=== PATIENT | female | born 1960 | race Caucasian/White ===

== ENCOUNTER 2018-01-11 08:26 | Inpatient (IN) | payer BC ==
[2018-01-11 11:00] LABS: BASO % 0.4 % (0.0-2.0); EOS % 0.3 % (0.0-4.0); HEMOGLOBIN 14.8 g/dL (12.0-16.0); LYMPH # 1.7 K/uL (1.0-4.3); LYMPH % 16.9 % (20.0-40.0); MEAN CELL VOLUME 99.4 fl (81.0-99.0); MEAN CORPUSCULAR HEMOGLOBIN 33.1 pg (27.0-31.0); MEAN CORPUSCULAR HGB CONC 33.3 g/dL (33.0-37.0); MEAN PLATELET VOLUME 11.2 fl (7.2-11.7); MONO # 0.7 K/uL (0.0-0.8); NEUT # 7.4 K/uL (1.8-7.0); NEUT % 75.4 % (50.0-75.0); NRBC % 0.1 % (0.0-0.0); RBC 4.46 Mil/uL (3.80-5.20); RED CELL DISTRIBUTION WIDTH 13.3 % (11.5-14.5); WHITE BLOOD COUNT 9.8 K/uL (4.8-10.8)
[2018-01-11 11:13] LABS: BLOOD UREA NITROGEN 33 mg/dl (7-17); CALCIUM 9.4 mg/dL (8.4-10.2); GFR AFRICAN-AMERICAN > 60; GFR NON-AFRICAN AMERICAN > 60; LIPASE 73 U/L (23-300)
[2018-01-11 11:24] LABS: B-TYPE NATRIURETIC PEPTIDE 15700 pg/ml (0-900)
--- NOTE | 2018-01-11 11:34 | RAD ---
HISTORY: SOB COMPARISON: 10/13/2014. FINDINGS: LUNGS: No active pulmonary disease. PLEURA: No significant pleural effusion identified, no pneumothorax apparent. CARDIOVASCULAR: No radiographic findings to suggest acute or significant cardiovascular disease. Position/ configuration of pacemaker device: Satisfactory. OSSEOUS STRUCTURES: No significant abnormalities. VISUALIZED UPPER ABDOMEN: Normal. OTHER FINDINGS: None. IMPRESSION: No active disease. No significant interval change compared to the prior examination(s).
--- NOTE | 2018-01-11 12:14 | CARD ---
APPROVED REPORT EKG Measurement Heart [id number] <Conclusion> Sinus tachycardia Possible Left atrial enlargement Left axis deviation Septal infarct, age undetermined ST & T wave abnormality, consider lateral ischemia Abnormal ECG
--- NOTE | 2018-01-11 12:29 | ED PDOC ---
HPI: Abdomen Time Seen by Provider: 01/11/18 09:03 Chief Complaint (Nursing): Pain, Chronic Chief Complaint (Provider): Pain, Chronic History Per: Patient History/Exam Limitations: no limitations Onset/Duration Of Symptoms: Days (x 7) Current Symptoms Are (Timing): Still Present Location Of Pain/Discomfort: Diffuse Associated Symptoms: denies: Chest Pain, Other (Bleeding, syncope) Additional Complaint(s): 57 years old female with history of diabetes, hypertension, anxiety, CHF, COPD and asthma presents to the ED complaining of diffused abdominal pain, leg pain associated with difficulty walking and generalized weakness onset for a week. Patient also reports chronic shortness of breath. Patient states she was seen by Dr. Mackenzie yesterday for complaints and was prescribed medicine but with no improvement. She reports she stopped all her medications a few days ago because "she did not feel well." Patient states she was not able to sleep well because of the pain. She denies any chest pain, syncope, bleeding. No further medical complaints. PCP: Subhash Mackenzie I Past Medical History Reviewed: Historical Data, Nursing Documentation, Vital Signs Vital Signs: Last Vital Signs Temp 97.5 F L 01/12/18 16:03 Pulse 96 H 01/12/18 16:03 Resp 18 01/12/18 16:03 BP 125/77 01/12/18 16:03 Pulse Ox 96 01/12/18 16:03 - Medical History PMH: Anxiety, Asthma, CHF, COPD, Diabetes, HTN, Kidney Stones Denies: HIV - Surgical History Surgical History: No Surg Hx - Family History Family History: States: Unknown Family Hx, Hypertension - Social History Current smoker - smoking cessation education provided: No Alcohol: None Drugs: Denies - Home Medications Home Medications: Ambulatory Orders Medication Instructions Recorded Aspirin [Ecotrin] 81 mg PO DAILY 01/11/18 Atorvastatin [Lipitor] 40 mg PO DAILY 01/11/18 Budesonide/Formoterol Fumarate 2 puff IH Q12 01/11/18 [Symbicort 160-4.5 Mcg Inhaler] Digoxin [Digitek] 125 mcg PO DAILY 01/11/18 Esomeprazole Magnesium [Nexium 20 mg PO DAILY 01/11/18 24Hr] Fluocinonide 0.05% Cream [Lidex 1 appl TOP Q8 01/11/18 0.05% Cream] Furosemide [Lasix] 40 mg PO DAILY 01/11/18 GlipiZIDE [Glucotrol] 10 mg PO DAILY 01/11/18 Ivabradine HCl [Corlanor] 5 mg PO Q12 01/11/18 Sacubitril/Valsartan [Entresto 49 1 tab PO Q12 01/11/18 mg-51 mg] Spironolactone [Aldactone] 12.5 mg PO DAILY 01/11/18 Sucralfate [Carafate Tab] 1 gm PO QID 01/11/18 - Allergies Allergies/Adverse Reactions: Allergies Allergy/AdvReac Type Severity Reaction Status Date / Time No Known Allergies Allergy Verified 07/09/14 13:47 Review of Systems ROS Statement: Except As Marked, All Systems Reviewed And Found Negative Constitutional: Positive for: Weakness (generalized ). Negative for: Other ( bleeding) Cardiovascular: Negative for: Chest Pain Respiratory: Positive for: Shortness of Breath (chronic) Gastrointestinal: Positive for: Abdominal Pain (Diffused) Musculoskeletal: Positive for: Leg Pain (Bilateral) Neurological: Negative for: Other (syncope) Physical Exam - Reviewed Nursing Documentation Reviewed: Yes Vital Signs Reviewed: Yes - Physical Exam Appears: Positive for: Non-toxic, No Acute Distress Head Exam: Positive for: ATRAUMATIC, NORMAL INSPECTION Skin: Positive for: Normal Color, Warm, Dry Eye Exam: Positive for: Normal appearance, EOMI, PERRL Neck: Positive for: Normal, Painless ROM, Supple Cardiovascular/Chest: Positive for: Regular Rate, Rhythm, Tachycardia. Negative for: Edema, Murmur Respiratory: Positive for: Normal Breath Sounds. Negative for: Respiratory Distress Gastrointestinal/Abdominal: Positive for: Normal Exam, Soft. Negative for: Tenderness, Distended Back: Positive for: Normal Inspection. Negative for: L CVA Tenderness, R CVA Tenderness, Vertebral Tenderness Extremity: Positive for: Normal ROM (lower extremities). Negative for: Tenderness (b/l legs), Deformity, Swelling (b/l legs) Neurologic/Psych: Positive for: Alert, Oriented. Negative for: Motor/Sensory Deficits - Laboratory Results Result Diagrams: 01/12/18 04:25 01/12/18 04:25 - ECG ECG Rhythm: Positive for: Sinus Tachycardia. Negative for: Normal QRS Interpretation Of ECG: T-wave inversion in lateral leads. Left axis deviation. Rate: 107 O2 Sat by Pulse Oximetry: 94 (RA) Pulse Ox Interpretation: Normal - Progress Re-evaluation Time: 15:15 Condition: Re-examined, Improving,but remains with symptoms Medical Decision Making Medical Decision Making: Initial Impression: Abdominal pain, leg pain, flu-like symptoms and shortness of breath. Differential includes but not limited to gastritis, colitis, pancreatitis, CHF exacerbation, UTI and influenza. Initial Plan: --Abdomen and Pelvis CT --EKG --BNP --BMP --Creatine Phophokinase --Lipase --Troponin I --Urine dipstick --CBC --Chest portable --Lasix 40 mg IVP Chest X-Ray Findings: LUNGS: No active pulmonary disease. PLEURA: No significant pleural effusion identified, no pneumothorax apparent. CARDIOVASCULAR: No radiographic findings to suggest acute or significant cardiovascular disease. Position/ configuration of pacemaker\\AICD device: Satisfactory. OSSEOUS STRUCTURES: No significant abnormalities. VISUALIZED UPPER ABDOMEN: Normal. OTHER FINDINGS: None. IMPRESSION: No active disease. No significant interval change compared to the prior examination(s). 13:33 Abdomen/Pelvis CT FINDINGS: LOWER THORAX: Incompletely visualize cardiomegaly and pacemaker device. The incompletely visualized unilateral, left saline prosthesis. LIVER: Hepatomegaly, hepatic steatosis without focal hepatic abnormality. GALLBLADDER AND BILE DUCTS: Distended gallbladder containing sludge, perhaps stones. Gallbladder wall appears to be thickened. The findings suggest possibility of acute cholecystitis. No intrahepatic or common bile duct dilatation identified. PANCREAS: Unremarkable. No gross lesion or ductal dilatation. SPLEEN: Unremarkable. ADRENALS: Unremarkable. No mass. KIDNEYS AND URETERS: Bilateral nonobstructing renal calculi, the largest in the upper pole collecting system on the left measures 5 x 9.7 mm. Additional smaller calculi confirmed in the right kidney. No evidence of obstructive uropathy or suspicious renal mass. VASCULATURE: Unremarkable. No aortic aneurysm. BOWEL: Unremarkable. No obstruction. No gross mural thickening. APPENDIX: A normal appendix is not visualized. PERITONEUM: Unremarkable. No free fluid. No free air. LYMPH NODES: Unremarkable. No enlarged lymph nodes. BLADDER: Unremarkable. REPRODUCTIVE: Prior hysterectomy. BONES: No acute fracture. OTHER FINDINGS: Postoperative changes in the pelvis and right lower quadrant. IMPRESSION: Distended gallbladder possible gallstones and findings suggestive of acute cholecystitis. Bilateral nonobstructing renal calculi. Additional benign and/or incidental findings described above. -Discussed case with Dr. Mackenzie, who admits for CHF exacerbation and possible cholecystitis. -Discussed with surgical technician who will discuss with Dr. Conde -Spoke with Dr. Conde who agrees with management, ultrasound and admission. 1615 Ultrasound Findings: LIVER: Measures 17.0 cm in length. Normal echogenicity of the liver parenchyma. No mass. No intrahepatic bile duct dilatation. GALLBLADDER: The gallbladder is not fully distended limiting evaluation of the wall. An element of mural thickening is not completely excluded but is not been proven either. No pericholecystic fluid collection or cholelithiasis. COMMON BILE DUCT: Measures 3.0 mm. No stones. No dilatation. PANCREAS: The tail of the pancreas is obscured by overlying bowel gas with remainder unremarkable. RIGHT KIDNEY: Measures 10.5 cm in length. No hydronephrosis appreciated although 1.0 cm upper midpole calyx calculus identified densely shadowing posteriorly. No additional intrarenal calculi identified. Excellent corticomedullary differentiation is identified. No definitive cystic or solid parenchymal mass or perinephric fluid collection. AORTA: No aneurysmal dilatation. IVC: Unremarkable. OTHER FINDINGS: None . IMPRESSION: 1. Gallbladder is not fully distended limiting evaluation of the wall. Limited thickening is not excluded. No cholelithiasis or pericholecystic fluid collection identified. No reported sonographic Juarez sign either. Cholecystitis is not favored but clinical correlation advised. 2. No pattern of biliary tree dilatation. 3. Partial imaging of the pancreas. 4. 1 cm intrarenal calculus upper midpole right kidney without obstructive uropathy. Scribe Attestation: Documented by Fanny Iglesias, acting as a scribe for Constantino Grande MD. Provider Scribe Attestation: All medical record entries made by the Scribe were at my direction and personally dictated by me. I have reviewed the chart and agree that the record accurately reflects my personal performance of the history, physical exam, medical decision making, and the department course for this patient. I have also personally directed, reviewed, and agree with the discharge instructions and disposition. Disposition - Clinical Impression Clinical Impression: CHF exacerbation, Cholelithiasis - Patient ED Disposition Is Patient to be Admitted: Yes Discussed With : Subhash Mackenzie Doctor Will See Patient In The: Hospital Counseled Patient/Family Regarding: Studies Performed, Diagnosis - Disposition Disposition Time: 15:30 Condition: FAIR - Pt Status Changed To: Hospital Disposition Of: Inpatient - Admit Certification Admit to Inpatient:: After my assessment, the patient will require hospitalization for at least two midnights. This is because of the severity of symptoms shown, intensity of services needed, and/or the medical risk in this patient being treated as an outpatient. - POA Present On Arrival: Poor Glycemic Control
[2018-01-11] MEDS ORDERED: Iohexol 300 50 ML ONE ×3 (12:38→12:39)
--- NOTE | 2018-01-11 13:35 | CT ---
PROCEDURE: CT Abdomen and Pelvis with contrast HISTORY: Chest pain, abdominal pain. COMPARISON: None. TECHNIQUE: Contrast dose: 95 cc Omnipaque 300 Radiation dose: Total exam DLP = 249.95 mGy-cm. This CT exam was performed using one or more of the following dose reduction techniques: Automated exposure control, adjustment of the mA and/or kV according to patient size, and/or use of iterative reconstruction technique. FINDINGS: LOWER THORAX: Incompletely visualize cardiomegaly and pacemaker device. The incompletely visualized unilateral, left saline prosthesis. LIVER: Hepatomegaly, hepatic steatosis without focal hepatic abnormality. GALLBLADDER AND BILE DUCTS: Distended gallbladder containing sludge, perhaps stones. Gallbladder wall appears to be thickened. The findings suggest possibility of acute cholecystitis. No intrahepatic or common bile duct dilatation identified. PANCREAS: Unremarkable. No gross lesion or ductal dilatation. SPLEEN: Unremarkable. ADRENALS: Unremarkable. No mass. KIDNEYS AND URETERS: Bilateral nonobstructing renal calculi, the largest in the upper pole collecting system on the left measures 5 x 9.7 mm. Additional smaller calculi confirmed in the right kidney. No evidence of obstructive uropathy or suspicious renal mass. VASCULATURE: Unremarkable. No aortic aneurysm. BOWEL: Unremarkable. No obstruction. No gross mural thickening. APPENDIX: A normal appendix is not visualized. PERITONEUM: Unremarkable. No free fluid. No free air. LYMPH NODES: Unremarkable. No enlarged lymph nodes. BLADDER: Unremarkable. REPRODUCTIVE: Prior hysterectomy. BONES: No acute fracture. OTHER FINDINGS: Postoperative changes in the pelvis and right lower quadrant. IMPRESSION: Distended gallbladder possible gallstones and findings suggestive of acute cholecystitis. Bilateral nonobstructing renal calculi. Additional benign and/or incidental findings described above.
[2018-01-11] MEDS ORDERED: Albuterol-Ipratrop 3 mg / 0.5 (3 ml) UD INH STA (15:31)
[2018-01-11] MEDS ORDERED: Piperacillin/Tazobact 3.375 GM in Sodium Chloride 0.9% 100 ML IVPB STA (15:32)
[2018-01-11] MEDS ORDERED: Piperacillin/Tazobact 3.375 gm Inj IVPB ONE (16:13)
[2018-01-11] MEDS ORDERED: Albuterol-Ipratrop 3 mg / 0.5 (3 ml) UD ONE (16:13)
--- NOTE | 2018-01-11 16:17 | US ---
HISTORY: abdominal pain r/o florecita COMPARISON: None. TECHNIQUE: Sonographic evaluation of the right upper quadrant of the abdomen. FINDINGS: LIVER: Measures 17.0 cm in length. Normal echogenicity of the liver parenchyma. No mass. No intrahepatic bile duct dilatation. GALLBLADDER: The gallbladder is not fully distended limiting evaluation of the wall. An element of mural thickening is not completely excluded but is not been proven either. No pericholecystic fluid collection or cholelithiasis. COMMON BILE DUCT: Measures 3.0 mm. No stones. No dilatation. PANCREAS: The tail of the pancreas is obscured by overlying bowel gas with remainder unremarkable. RIGHT KIDNEY: Measures 10.5 cm in length. No hydronephrosis appreciated although 1.0 cm upper midpole calyx calculus identified densely shadowing posteriorly. No additional intrarenal calculi identified. Excellent corticomedullary differentiation is identified. No definitive cystic or solid parenchymal mass or perinephric fluid collection. AORTA: No aneurysmal dilatation. IVC: Unremarkable. OTHER FINDINGS: None . IMPRESSION: 1. Gallbladder is not fully distended limiting evaluation of the wall. Limited thickening is not excluded. No cholelithiasis or pericholecystic fluid collection identified. No reported sonographic Juarez sign either. Cholecystitis is not favored but clinical correlation advised. 2. No pattern of biliary tree dilatation. 3. Partial imaging of the pancreas. 4. 1 cm intrarenal calculus upper midpole right kidney without obstructive uropathy.
--- NOTE | 2018-01-11 16:41 | CP.PCM.CON ---
<Emerson Craig - Last Filed: 01/11/18 16:59> History of Present Illness - History of Present Illness History of Present Illness: General Surgery Note for Dr. Conde Reason for consult: Abdominal pain 57 F with past medical history that includes diabetes, hypertension, anxiety, CHF, COPD, breast CA s/p mastectomy and chemo presents to [facility] complaining of diffuse abdominal pain. Patient was seen and examined in the ED. Patient states that abdominal pain began one week ago. Patient went to see her PMD because she was not feeling well. She was put on oral antibiotics for COPD exacerbation. She had follow up with PMD yesterday and was not feeling well still so he instructed her to go to ED. Admits nausea and Shortness of breath. Denies vomiting. She states that abdominal pain is not related to eating. She rates pain as moderate intensitiy. She describes pain as constant, diffuse and aching located throughout entire abdomen. She denies exacaerbating or alleviating factors. Patient sleeps with 2-3 pillows at night. She can walk 2-3 blocks and 1 flight of stairs before getting tired. She is unsure when her last ECHO was done. Denies fever/chills, chest pain, palpitations, vomiting, diarrhea, constipation, incontinence, numbness/tingling, skin changes, urinary symptoms. PMD: Dr. Mackenzie PMH: diabetes, hypertension, anxiety, CHF, chemo induced cardiomyopathy, COPD, breast CA s/p mastectomy and chemo, asthma Meds: As per EMR Allergy: NKDA PSH: hystectomy, radical mastectomy FH: HTN Social: denies tobacco/EtOH/illicit drug use Review of Systems - Review of Systems All systems: reviewed and no additional remarkable complaints except (as per HPI ) Past Patient History - Past Medical History & Family History Past Medical History?: Yes - Past Social History Alcohol: None Drugs: Denies - CARDIAC Hx Cardiac Disorders: Yes - PULMONARY Hx Respiratory Disorders: Yes - HEENT Hx Cataracts: Yes - RENAL Hx Kidney Stones: Yes - ENDOCRINE/METABOLIC Hx Diabetes Mellitus Type 2: Yes - HEMATOLOGICAL/ONCOLOGICAL Hx Human Immunodeficiency Virus (HIV): No - INTEGUMENTARY Other/Comment: Shingles - MUSCULOSKELETAL/RHEUMATOLOGICAL Hx Falls: No - GASTROINTESTINAL Hx Gastrointestinal Disorders: No - GENITOURINARY/GYNECOLOGICAL Other/Comment: left breast ca 14 yrs ago - PSYCHIATRIC Hx Psychophysiologic Disorder: Yes - SURGICAL HISTORY Hx Surgeries: Yes Hx Hysterectomy: Yes Hx Mastectomy: Yes (left) Hx Orthopedic Surgery: Yes (left knee) - ANESTHESIA Hx Anesthesia: Yes Hx Anesthesia Reactions: No Hx Malignant Hyperthermia: No Meds Allergies/Adverse Reactions: Allergies Allergy/AdvReac Type Severity Reaction Status Date / Time No Known Allergies Allergy Verified 07/09/14 13:47 Physical Exam - Constitutional Appears: No Acute Distress, Older Than Stated Age - Head Exam Head Exam: ATRAUMATIC, NORMOCEPHALIC - Eye Exam Eye Exam: EOMI, Normal appearance Pupil Exam: PERRL - ENT Exam ENT Exam: Mucous Membranes Moist - Neck Exam Neck exam: Positive for: Full Rom - Respiratory Exam Respiratory Exam: NORMAL BREATHING PATTERN. absent: Accessory Muscle Use, Respiratory Distress - Cardiovascular Exam Cardiovascular Exam: Tachycardia - GI/Abdominal Exam GI & Abdominal Exam: Normal Bowel Sounds, Soft, Tenderness (mild). absent: Distended, Firm, Guarding, Rebound, Rigid Additional comments: (+) juarez's sign - Extremities Exam Extremities exam: Positive for: normal capillary refill, pedal edema, pedal pulses present. Negative for: calf tenderness - Back Exam Back exam: absent: CVA tenderness (L), CVA tenderness (R) - Neurological Exam Neurological exam: Alert, CN II-XII Intact, Oriented x3 - Psychiatric Exam Psychiatric exam: Normal Affect, Normal Mood - Skin Skin Exam: Dry, Intact, Warm Results - Vital Signs Recent Vital Signs: Last Vital Signs Temp 97.5 F L 01/11/18 08:36 Pulse 107 H 01/11/18 16:38 Resp 13 01/11/18 13:25 BP 138/86 01/11/18 13:24 Pulse Ox 94 L 01/11/18 16:04 - Labs Result Diagrams: 01/11/18 10:40 01/11/18 10:40 Labs: Laboratory Results - last 24 hr 01/11/18 01/11/18 10:40 10:40 WBC 9.8 RBC 4.46 Hgb 14.8 Hct 44.4 MCV 99.4 H MCH 33.1 H MCHC 33.3 RDW 13.3 Plt Count 233 MPV 11.2 Neut % (Auto) 75.4 H Lymph % (Auto) 16.9 L [place] % (Auto) 7.0 Eos % (Auto) 0.3 Baso % (Auto) 0.4 Neut # (Auto) 7.4 H Lymph # (Auto) 1.7 [place] # (Auto) 0.7 Eos # (Auto) 0.0 Baso # (Auto) 0.0 Sodium 134 Potassium 4.6 Chloride 96 L Carbon Dioxide 22 Anion Gap 21 H BUN 33 H Creatinine 0.8 Est GFR ( Amer) > 60 Est GFR (Non-Af Amer) > 60 Random Glucose 363 H Calcium 9.4 Total Creatine Kinase 183 H Troponin I 0.0420 NT-Pro-B Natriuret Pep 50759 H Lipase 73 Assessment & Plan - Assessment and Plan (Free Text) Plan: 57 F presents with abdominal pain; CT shows distended GB with pericholecystoc fluid; ABUS does not suggest acute cholecystitis (no fluid or thickening) -NPO -Possible HIDA scan -Medical management as per primary -will discuss with Dr. Amaya Craig PGY1 <Clarence Conde - Last Filed: 01/11/18 18:27> History of Present Illness - History of Present Illness History of Present Illness: Patient was seen and examined at the bedside. Agree with resident's note above. Physical Exam - GI/Abdominal Exam Additional comments: soft, very mildly tender through abdomen, ND, BS+, no rebound, no guarding, negative Juarez's sign Results - Vital Signs Recent Vital Signs: Last Vital Signs Temp 97.7 F 01/11/18 17:41 Pulse 100 H 01/11/18 17:41 Resp 12 01/11/18 17:41 BP 127/77 01/11/18 17:41 Pulse Ox 96 01/11/18 17:41 - Labs Result Diagrams: 01/11/18 10:40 01/11/18 10:40 Labs: Laboratory Results - last 24 hr 01/11/18 01/11/18 01/11/18 10:40 10:40 16:00 WBC 9.8 RBC 4.46 Hgb 14.8 Hct 44.4 MCV 99.4 H MCH 33.1 H MCHC 33.3 RDW 13.3 Plt Count 233 MPV 11.2 Neut % (Auto) 75.4 H Lymph % (Auto) 16.9 L [place] % (Auto) 7.0 Eos % (Auto) 0.3 Baso % (Auto) 0.4 Neut # (Auto) 7.4 H Lymph # (Auto) 1.7 [place] # (Auto) 0.7 Eos # (Auto) 0.0 Baso # (Auto) 0.0 Sodium 134 Potassium 4.6 Chloride 96 L Carbon Dioxide 22 Anion Gap 21 H BUN 33 H Creatinine 0.8 Est GFR ( Amer) > 60 Est GFR (Non-Af Amer) > 60 Random Glucose 363 H Calcium 9.4 Total Bilirubin 2.1 H Direct Bilirubin 1.1 H AST 82 H ALT 128 H D Alkaline Phosphatase 120 Total Creatine Kinase 183 H Troponin I 0.0420 NT-Pro-B Natriuret Pep 43899 H Total Protein 7.0 Albumin 4.0 Globulin 3.0 Albumin/Globulin Ratio 1.4 Lipase 73 - Imaging and Cardiology US - abdomen Status: Image reviewed by me, Report reviewed by me Assessment & Plan - Assessment and Plan (Free Text) Plan: - Keep NPO - Pain control - HIDA scan to r/o cholecystitis - Repeat labs in am - Recommend GI consultation - Will follow
[2018-01-11 17:04] LABS: ALB/GLOB RATIO 1.4 (1.0-2.1); BILIRUBIN,DIRECT 1.1 mg/ml (0.0-0.4)
[2018-01-11] MEDS ORDERED: IVABRADINE HCL 5 MG PO SCH (21:00)
[2018-01-11] MEDS ORDERED: Morphine 4 MG/ML VIAL IVP PRN (22:07)
[2018-01-11] MEDS: Fluticasone-Salmeterol 250-50mcg Diskus IH SCH (22:10)
[2018-01-11] MEDS: Albuterol-Ipratrop 3 mg / 0.5 (3 ml) UD INH SCH (22:24)
[2018-01-11] MEDS: Insulin Regular 100 units/ml SC SCH (23:32)
[2018-01-12 06:19] LABS: BASO % 0.1 % (0.0-2.0); LYMPH # 0.6 K/uL (1.0-4.3); LYMPH % 8.6 % (20.0-40.0); MEAN CELL VOLUME 100.6 fl (81.0-99.0); MEAN CORPUSCULAR HEMOGLOBIN 32.7 pg (27.0-31.0); MEAN CORPUSCULAR HGB CONC 32.5 g/dL (33.0-37.0); MEAN PLATELET VOLUME 11.3 fl (7.2-11.7); MONO % 0.6 % (0.0-10.0); NEUT # 6.2 K/uL (1.8-7.0); NEUT % 90.7 % (50.0-75.0); NRBC % 0.1 % (0.0-0.0); PLATELET COUNT 194 K/uL (130-400); RBC 4.26 Mil/uL (3.80-5.20); RED CELL DISTRIBUTION WIDTH 13.7 % (11.5-14.5); WHITE BLOOD COUNT 6.9 K/uL (4.8-10.8)
[2018-01-12 06:21] LABS: LDL CHOLESTEROL 160 mg/dL (0-129)
[2018-01-12 06:24] LABS: ALB/GLOB RATIO 1.4 (1.0-2.1); ALBUMIN 3.4 g/dL (3.5-5.0); ALT/SGPT 111 U/L (9-52); AST/SGOT 66 U/L (14-36); BLOOD UREA NITROGEN 37 mg/dl (7-17); CALCIUM 9.1 mg/dL (8.4-10.2); GFR AFRICAN-AMERICAN > 60; GFR NON-AFRICAN AMERICAN > 60; HDL CHOLESTEROL 23 MG/DL (30-70)
[2018-01-12] MEDS: Albuterol-Ipratrop 3 mg / 0.5 (3 ml) UD INH SCH ×4 (07:39→19:13)
[2018-01-12] MEDS: Insulin Regular 100 units/ml SC SCH ×3 (08:27→17:01)
[2018-01-12] MEDS: Fluticasone-Salmeterol 250-50mcg Diskus IH SCH ×2 (09:25→21:36)
[2018-01-12] MEDS ORDERED: Phenol 1.4% Throat Spray MT PRN (09:49)
[2018-01-12] MEDS ORDERED: Sodium Chloride 3% for Inhalation 4 ML VIAL.NEB IH PRN (09:52)
--- NOTE | 2018-01-12 10:42 | HP ---
HISTORY OF PRESENT ILLNESS: Ms. Patterson is a 57-year-old female who was admitted via the emergency room because of abdominal pain, diffuse in nature, associated with pain in the legs and difficulty walking and shortness of breath for the past several weeks prior to presentation symptoms worse recently. She was seen in the office and treated for shortness of breath and upper respiratory tract infection with acute exacerbation of chronic obstructive pulmonary disease and that seemed to have improved, but she developed severe abdominal pain following taking medications for COPD and upper respiratory tract infection and she stopped taking all her medications just because of that. PAST MEDICAL HISTORY: Cardiomyopathy, congestive heart failure, chronic obstructive pulmonary disease, diabetes mellitus, hypertension, status post left mastectomy for cancer, and anxiety disorder. FAMILY HISTORY: Noncontributory. SOCIAL HISTORY: Socially, she quit smoking years ago. Does not drink and does not use drugs and is fully employed. PHYSICAL EXAMINATION: GENERAL: The patient is very anxious. She is alert and oriented x3. VITAL SIGNS: Blood pressure 138/86, pulse of 107, and respiratory rate 20 per minute. She is afebrile. O2 sat 94% on nasal cannula oxygen. SKIN: Shows fair turgor. HEENT: Pupils are equal and reactive to light and accommodation. Mouth shows fair hygiene with mild mucous engorgement of pharynx and tenderness of the left side of the throat and neck with mild submandibular adenopathy. LUNGS: Poor aeration bilaterally with rales and dullness at the bases and wheezing. HEART: Regular. No gallops or murmurs are appreciated. There is a scar of left mastectomy noted. ABDOMEN: Soft with midepigastric tenderness. No organomegaly appreciated. EXTREMITIES: 1+ pitting pedal edema bilaterally. GENITALIA AND RECTAL: Deferred. CENTRAL NERVOUS SYSTEM: Exam except for anxiety is unremarkable. MEDICATIONS: Include aspirin, Lipitor, Symbicort, Nexium, furosemide, Glucotrol, Entresto, Aldactone, and Carafate. LABORATORY DATA: Remarkable for WBC of 6.9, hemoglobin of 14, and platelet count of 194,000. Sodium of 137, potassium of 4.2, BUN of 37, creatinine of 0.9, and serum glucose of 268. ProBNP of 15,700. Troponin of 0.042. Cholesterol of 207 and LDL of 160. Chest x-ray, no active disease noted. CT scan of the abdomen and pelvis, distended gallbladder, possible gallstones and findings suggestive of acute cholecystitis. Abdominal ultrasound, gallbladder is not fully distended, limited evaluation, limited thickening is not excluded. No cholelithiasis or pericholecystic fluid collection identified. No pattern of biliary tree dilatation, partial imaging of the pancreas is noted, 1 cm intrarenal calculus upper and mid pole right kidney without obstructive uropathy. EKG, sinus tachycardia, possible left atrial enlargement, left axis deviation, septal infarct age undetermined, ST-T abnormality, consider lateral ischemia. IMPRESSION: Abdominal pain probably secondary to gastritis one has to rule out superimposed gallbladder disease, acute exacerbation of chronic obstructive pulmonary disease, congestive heart failure secondary to both diastolic and systolic dysfunction, tachycardia secondary to upper respiratory tract infection and congestive heart failure, anxiety disorder, diabetes mellitus with hyperglycemia type 2, history of left mastectomy for breast cancer, and history of cardiomyopathy. PLAN: The plan is intravenous diuretics, oxygen therapy, and analgesics for pain. Gastroenterology and surgical followup. We would probably hold off on antibiotic therapy for now. We will give IV H2 blockers for gastritis. Further therapy will depend on findings. Subhash Mackenzie MD
[2018-01-12 10:56] LABS: LYMPHOCYTE 9 % (20-50); NEUTROPHIL 90 % (42-75); PLATELET ESTIMATE NORMAL (NORMAL); REACTIVE LYMPHOCYTES 1 % (0-0); TOTAL CELLS COUNTED 100
[2018-01-12 10:57] LABS: ANISOCYTOSIS SLIGHT; LARGE PLATELETS PRESENT
--- NOTE | 2018-01-12 11:37 | CP.PCM.PN ---
Subjective - Date & Time of Evaluation Date of Evaluation: 01/12/18 Time of Evaluation: 11:35 - Subjective Subjective: Patient seen and examined. Complains of sore throat and cough. Patient states she still has some abdominal pain. Denies nausea/vomiting. Having loose bowel movements. Objective - Vital Signs/Intake and Output Vital Signs (last 24 hours): Temp Pulse Resp BP Pulse Ox 97.6 F 79 20 122/66 95 01/12/18 08:00 01/12/18 08:00 01/12/18 08:00 01/12/18 08:00 01/12/18 08:00 - Medications Medications: Current Medications Albuterol/Ipratropium (Duoneb 3 Mg/0.5 Mg (3 Ml) Ud) 3 ml INH RQID [facility] Last Admin: 01/12/18 10:59 Dose: 3 ml Alprazolam (Xanax) 0.25 mg PO Q12 PRN PRN Reason: Anxiety Stop: 01/19/18 09:38 Atorvastatin Calcium (Lipitor) 40 mg PO DAILY [facility] Digoxin (Digoxin) 0.125 mg PO DAILY [facility] Furosemide (Lasix) 40 mg IVP DAILY [facility] Glipizide (Glucotrol) 10 mg PO DAILY [facility] Piperacillin Sod/Tazobactam (Sod 3.375 gm/ Sodium Chloride) 100 mls @ 100 mls/ hr IVPB Q12 [facility] PRN Reason: Protocol Insulin Human Regular (Humulin R) 0 units SC ACHS [facility] PRN Reason: Protocol Last Admin: 01/11/18 23:32 Dose: Not Given Morphine Sulfate (Morphine) 2 mg IVP Q6 PRN PRN Reason: Pain, moderate (4-7) Pantoprazole Sodium (Protonix Inj) 40 mg IVP DAILY [facility] Phenol/Menthol (Phenaseptic 1.4% Throat [place]) 1 spry MT Q2 PRN PRN Reason: Sore Throat Fluticasone/Salmeterol (Advair Diskus 250/50) 1 puff IH Q12 [facility] Last Admin: 01/11/18 22:10 Dose: 1 puff Spironolactone (Aldactone) 12.5 mg PO DAILY [facility] - Labs Labs: 01/12/18 04:25 01/12/18 04:25 - Constitutional Appears: No Acute Distress - Head Exam Head Exam: NORMOCEPHALIC - Eye Exam Eye Exam: Normal appearance - ENT Exam ENT Exam: Mucous Membranes Moist - Respiratory Exam Respiratory Exam: NORMAL BREATHING PATTERN - Cardiovascular Exam Cardiovascular Exam: +S1, +S2 - GI/Abdominal Exam GI & Abdominal Exam: Soft. absent: Distended, Firm, Guarding, Rigid - Neurological Exam Neurological Exam: Alert, Awake, Oriented x3 - Psychiatric Exam Psychiatric exam: Normal Mood - Skin Skin Exam: Dry, Normal Color, Warm Assessment and Plan - Assessment and Plan (Free Text) Assessment: 57F with abdominal pain Plan: -NPO -F/u HIDA scan - Medical management per primary -D/w Dr. Conde who agrees with plan JGomez PGY2
--- NOTE | 2018-01-12 15:33 | NM ---
PROCEDURE: Nuclear Medicine Hepatobiliary Scan HISTORY: r/o cholecystitis COMPARISON: None available. TECHNIQUE: Five mCi of technetium 99m Mebrofenin was administered intravenously. Planar images of the abdomen were obtained at 5 min intervals to 60 mins. Delayed images were also obtained. FINDINGS: LIVER: Timely and homogenous uptake. COMMON BILE DUCT: identified at 20 mins. GALLBLADDER: identified at 20 mins. SMALL BOWEL: Identified at 180 mins. IMPRESSION: The cystic duct is patent. The excretion into the small bowel appears delayed.
[2018-01-12] MEDS: Digoxin 125 mcg (0.125 mg) Tab PO SCH (16:27)
[2018-01-12] MEDS: Piperacillin/Tazobact 3.375 GM in Sodium Chloride 0.9% 100 ML IVPB SCH (21:37)
[2018-01-13] MEDS: Insulin Regular 100 units/ml SC SCH ×5 (03:59→21:36)
[2018-01-13 07:08] LABS: ALB/GLOB RATIO 1.3 (1.0-2.1); ALBUMIN 3.8 g/dL (3.5-5.0); ALT/SGPT 107 U/L (9-52); AST/SGOT 61 U/L (14-36); BLOOD UREA NITROGEN 37 mg/dl (7-17); CALCIUM 9.6 mg/dL (8.4-10.2); GFR AFRICAN-AMERICAN > 60; GFR NON-AFRICAN AMERICAN 57
[2018-01-13 07:14] LABS: B-TYPE NATRIURETIC PEPTIDE 14700 pg/ml (0-900)
[2018-01-13] MEDS: Albuterol-Ipratrop 3 mg / 0.5 (3 ml) UD INH SCH ×5 (07:27→19:30)
--- NOTE | 2018-01-13 07:40 | CP.PCM.PN ---
Addendum entered and electronically signed by Jose Beltran DO 01/13/18 07:44 : Thank you for the interesting consult. Please call surgical asst or reconsult service if you feel patient requires further surgical evaluation. Original Note: <Jose Beltran - Last Filed: 01/13/18 07:38> Subjective - Date & Time of Evaluation Date of Evaluation: 01/13/18 Time of Evaluation: 07:38 - Subjective Subjective: General Surgery Progress Note for Dr. Conde This 57F was seen and examined this AM at bedside no acute events to report overnight. Regular diet was ordered by our service however it was changed to clear liquid diet by primary team. Patient is tolerating clear liquid diet without any complaints. Passing gas no nausea vomiting chest pain or SOB. Objective - Vital Signs/Intake and Output Vital Signs (last 24 hours): Temp Pulse Resp BP Pulse Ox 97.0 F L 93 H 18 111/66 96 01/13/18 05:29 01/13/18 05:29 01/13/18 05:29 01/13/18 05:29 01/13/18 05:29 - Medications Medications: Current Medications Albuterol/Ipratropium (Duoneb 3 Mg/0.5 Mg (3 Ml) Ud) 3 ml INH RQID [facility] Last Admin: 01/13/18 07:27 Dose: 3 ml Alprazolam (Xanax) 0.25 mg PO Q12 PRN PRN Reason: Anxiety Stop: 01/19/18 09:38 Last Admin: 01/12/18 17:00 Dose: 0.25 mg Atorvastatin Calcium (Lipitor) 40 mg PO DAILY [facility] Last Admin: 01/12/18 16:26 Dose: 40 mg Digoxin (Digoxin) 0.125 mg PO DAILY [facility] Last Admin: 01/12/18 16:27 Dose: 0.125 mg Furosemide (Lasix) 40 mg IVP DAILY [facility] Last Admin: 01/12/18 13:48 Dose: 40 mg Glipizide (Glucotrol) 10 mg PO DAILY [facility] Last Admin: 01/12/18 16:26 Dose: 10 mg Piperacillin Sod/Tazobactam (Sod 3.375 gm/ Sodium Chloride) 100 mls @ 100 mls/ hr IVPB Q12 [facility] PRN Reason: Protocol Last Admin: 01/12/18 21:37 Dose: 100 mls/hr Insulin Human Regular (Humulin R) 0 units SC ACHS [facility] PRN Reason: Protocol Last Admin: 01/13/18 03:59 Dose: Not Given Morphine Sulfate (Morphine) 2 mg IVP Q6 PRN PRN Reason: Pain, moderate (4-7) Pantoprazole Sodium (Protonix Inj) 40 mg IVP DAILY [facility] Last Admin: 01/12/18 13:48 Dose: 40 mg Phenol/Menthol (Phenaseptic 1.4% Throat [place]) 1 spry MT Q2 PRN PRN Reason: Sore Throat Last Admin: 01/12/18 10:57 Dose: 1 spr Promethazine HCl/Codeine (Phenergan/Codeine Oral Syrup) 10 ml PO Q6 PRN PRN Reason: Cough Fluticasone/Salmeterol (Advair Diskus 250/50) 1 puff IH Q12 [facility] Last Admin: 01/12/18 21:36 Dose: 1 puff Spironolactone (Aldactone) 12.5 mg PO DAILY [facility] Last Admin: 01/12/18 16:27 Dose: 12.5 mg - Labs Labs: 01/12/18 04:25 01/13/18 05:30 - Constitutional Appears: No Acute Distress - Head Exam Head Exam: NORMOCEPHALIC - Eye Exam Eye Exam: Normal appearance - ENT Exam ENT Exam: Mucous Membranes Moist - Respiratory Exam Respiratory Exam: NORMAL BREATHING PATTERN - Cardiovascular Exam Cardiovascular Exam: +S1, +S2 - GI/Abdominal Exam GI & Abdominal Exam: Soft. absent: Distended, Firm, Guarding, Rigid - Neurological Exam Neurological Exam: Alert, Awake, Oriented x3 - Psychiatric Exam Psychiatric exam: Normal Mood - Skin Skin Exam: Dry, Normal Color, Warm Assessment and Plan - Assessment and Plan (Free Text) Assessment: 57F with abdominal pain Plan: - Reg Diet - HIDA - Patent cystic duct with excretion into the small bowel - Medical management per primary - No surgical Intervention at this time - D/W Dr. Amaya Beltran PGY2 <Clarence Conde - Last Filed: 01/13/18 16:24> Subjective - Date & Time of Evaluation Time of Evaluation: 16:20 - Subjective Subjective: Patient was seen and examined at the bedside. Agree with resident's note above. Objective - Vital Signs/Intake and Output Vital Signs (last 24 hours): Temp Pulse Resp BP Pulse Ox 97.8 F 103 H 20 127/72 95 01/13/18 12:00 01/13/18 12:00 01/13/18 12:00 01/13/18 16:09 01/13/18 12:00 - Medications Medications: Current Medications Albuterol/Ipratropium (Duoneb 3 Mg/0.5 Mg (3 Ml) Ud) 3 ml INH RQID [facility] Last Admin: 01/13/18 15:31 Dose: 3 ml Alprazolam (Xanax) 0.25 mg PO Q12 PRN PRN Reason: Anxiety Stop: 01/19/18 09:38 Last Admin: 01/12/18 17:00 Dose: 0.25 mg Atorvastatin Calcium (Lipitor) 40 mg PO DAILY [facility] Last Admin: 01/13/18 09:49 Dose: 40 mg Digoxin (Digoxin) 0.125 mg PO DAILY [facility] Last Admin: 01/13/18 09:46 Dose: 0.125 mg Furosemide (Lasix) 40 mg IVP DAILY [facility] Last Admin: 01/13/18 16:09 Dose: 40 mg Glipizide (Glucotrol) 10 mg PO DAILY [facility] Last Admin: 01/13/18 09:47 Dose: 10 mg Insulin Human Regular (Humulin R) 0 units SC ACHS [facility] PRN Reason: Protocol Last Admin: 01/13/18 13:15 Dose: 5 units Metformin HCl (Glucophage) 1,000 mg PO BIDWM [facility] Last Admin: 01/13/18 13:15 Dose: 1,000 mg Morphine Sulfate (Morphine) 2 mg IVP Q6 PRN PRN Reason: Pain, moderate (4-7) Pantoprazole Sodium (Protonix Inj) 40 mg IVP DAILY [facility] Last Admin: 01/13/18 16:10 Dose: Not Given Phenol/Menthol (Phenaseptic 1.4% Throat [place]) 1 spry MT Q2 PRN PRN Reason: Sore Throat Last Admin: 01/12/18 10:57 Dose: 1 spr Promethazine HCl/Codeine (Phenergan/Codeine Oral Syrup) 10 ml PO Q6 PRN PRN Reason: Cough Fluticasone/Salmeterol (Advair Diskus 250/50) 1 puff IH Q12 [facility] Last Admin: 01/13/18 09:46 Dose: 1 puff Spironolactone (Aldactone) 12.5 mg PO DAILY [facility] Last Admin: 01/13/18 09:46 Dose: 12.5 mg - Labs Labs: 01/12/18 04:25 01/13/18 05:30 Assessment and Plan - Assessment and Plan (Free Text) Plan: - No general surgery intervention at present time - Continue care as per medical team - General surgery will sign off - please re-consult as needed
--- NOTE | 2018-01-13 09:22 | CP.PCM.PN ---
Subjective - Date & Time of Evaluation Date of Evaluation: 01/13/18 Time of Evaluation: 09:23 - Subjective Subjective: ABDOMINAL PAIN LESS SOB IMPROVED LESS ANXIOUS Objective - Vital Signs/Intake and Output Vital Signs (last 24 hours): Temp Pulse Resp BP Pulse Ox 98.2 F 86 18 121/74 92 L 01/13/18 07:51 01/13/18 07:51 01/13/18 07:51 01/13/18 07:51 01/13/18 07:51 - Medications Medications: Current Medications Albuterol/Ipratropium (Duoneb 3 Mg/0.5 Mg (3 Ml) Ud) 3 ml INH RQID [facility] Last Admin: 01/13/18 07:27 Dose: 3 ml Alprazolam (Xanax) 0.25 mg PO Q12 PRN PRN Reason: Anxiety Stop: 01/19/18 09:38 Last Admin: 01/12/18 17:00 Dose: 0.25 mg Atorvastatin Calcium (Lipitor) 40 mg PO DAILY [facility] Last Admin: 01/12/18 16:26 Dose: 40 mg Digoxin (Digoxin) 0.125 mg PO DAILY [facility] Last Admin: 01/12/18 16:27 Dose: 0.125 mg Furosemide (Lasix) 40 mg IVP DAILY [facility] Last Admin: 01/12/18 13:48 Dose: 40 mg Glipizide (Glucotrol) 10 mg PO DAILY [facility] Last Admin: 01/12/18 16:26 Dose: 10 mg Piperacillin Sod/Tazobactam (Sod 3.375 gm/ Sodium Chloride) 100 mls @ 100 mls/ hr IVPB Q12 [facility] PRN Reason: Protocol Last Admin: 01/12/18 21:37 Dose: 100 mls/hr Insulin Human Regular (Humulin R) 0 units SC ACHS [facility] PRN Reason: Protocol Last Admin: 01/13/18 03:59 Dose: Not Given Morphine Sulfate (Morphine) 2 mg IVP Q6 PRN PRN Reason: Pain, moderate (4-7) Pantoprazole Sodium (Protonix Inj) 40 mg IVP DAILY [facility] Last Admin: 01/12/18 13:48 Dose: 40 mg Phenol/Menthol (Phenaseptic 1.4% Throat [place]) 1 spry MT Q2 PRN PRN Reason: Sore Throat Last Admin: 01/12/18 10:57 Dose: 1 spr Promethazine HCl/Codeine (Phenergan/Codeine Oral Syrup) 10 ml PO Q6 PRN PRN Reason: Cough Fluticasone/Salmeterol (Advair Diskus 250/50) 1 puff IH Q12 [facility] Last Admin: 01/12/18 21:36 Dose: 1 puff Spironolactone (Aldactone) 12.5 mg PO DAILY [facility] Last Admin: 01/12/18 16:27 Dose: 12.5 mg - Labs Labs: 01/12/18 04:25 01/13/18 05:30 - Constitutional Appears: No Acute Distress - Head Exam Head Exam: ATRAUMATIC, NORMAL INSPECTION, NORMOCEPHALIC - Eye Exam Eye Exam: EOMI, Normal appearance, PERRL Pupil Exam: NORMAL ACCOMODATION, PERRL - ENT Exam ENT Exam: Mucous Membranes Moist, Normal Exam - Neck Exam Neck Exam: Full ROM, Normal Inspection. absent: Lymphadenopathy - Respiratory Exam Respiratory Exam: Decreased Breath Sounds, Prolonged Expiratory Phase, Rales, NORMAL BREATHING PATTERN - Cardiovascular Exam Cardiovascular Exam: REGULAR RHYTHM, +S1, +S2. absent: Murmur - GI/Abdominal Exam GI & Abdominal Exam: Soft, Normal Bowel Sounds. absent: Tenderness - Rectal Exam Rectal Exam: NORMAL INSPECTION - Extremities Exam Extremities Exam: Full ROM, Normal Capillary Refill, Normal Inspection, Pedal Edema. absent: Joint Swelling - Back Exam Back Exam: NORMAL INSPECTION - Neurological Exam Neurological Exam: Alert, Awake, CN II-XII Intact, Normal Gait, Oriented x3 - Psychiatric Exam Psychiatric exam: Normal Affect, Normal Mood - Skin Skin Exam: Dry, Intact, Normal Color, Warm Assessment and Plan - Assessment and Plan (Free Text) Assessment: CHF GASTRITIS CHOLELITHIASIS--NO OBSTRUCTION CARDIOMYOPATHY COPD Plan: [facility]VANCE DIET GI AND CARDIOLOGY EVAL PENDING
[2018-01-13] MEDS: Digoxin 125 mcg (0.125 mg) Tab PO SCH (09:46)
[2018-01-13] MEDS: Fluticasone-Salmeterol 250-50mcg Diskus IH SCH ×2 (09:46→21:27)
[2018-01-13] MEDS: Piperacillin/Tazobact 3.375 GM in Sodium Chloride 0.9% 100 ML IVPB SCH (09:50)
--- NOTE | 2018-01-13 11:15 | RAD ---
HISTORY: CHF COMPARISON: 01/11/2018 TECHNIQUE: Chest PA and lateral FINDINGS: LUNGS: No active pulmonary disease. PLEURA: No significant pleural effusion identified. No pneumothorax apparent. CARDIOVASCULAR: Moderate cardiomegaly. Single lead pacemaker OSSEOUS STRUCTURES: No significant abnormalities. VISUALIZED UPPER ABDOMEN: Normal. OTHER FINDINGS: None. IMPRESSION: No active disease.
[2018-01-13] MEDS: Promethazine/Cod 6.25mg-10mg/5ml Syr UD PO PRN (21:32)
[2018-01-14] MEDS: Insulin Regular 100 units/ml SC SCH ×4 (06:42→21:45)
[2018-01-14 07:27] LABS: BLOOD UREA NITROGEN 33 mg/dl (7-17); CALCIUM 9.2 mg/dL (8.4-10.2); GFR AFRICAN-AMERICAN > 60; GFR NON-AFRICAN AMERICAN 57
[2018-01-14] MEDS: Albuterol-Ipratrop 3 mg / 0.5 (3 ml) UD INH SCH ×4 (07:30→19:28)
--- NOTE | 2018-01-14 08:55 | CON ---
DATE: 01/13/2018 REFERRING DOCTOR: Subhash Mackenzie MD REASON FOR CONSULTATION: Abdominal pain. HISTORY OF PRESENT ILLNESS: This is a pleasant 57-year-old female with a history of CHF, shortness of breath, abdominal pain and discomfort, who was treated for upper respiratory infection given her COPD, which is currently improving and she has a pain in right upper quadrant, although the pain fluids. PAST MEDICAL HISTORY: Cardiomyopathy, CHF, COPD, diabetes, hypertension, and anxiety. FAMILY HISTORY: Noncontributory. MEDICATIONS: Reviewed. REVIEW OF SYSTEMS: All other systems have been reviewed and negative apart from the HPI. PHYSICAL EXAMINATION: VITAL SIGNS: In the hospital are grossly unremarkable. GENERAL: This is a pleasant middle-aged female, lying in bed comfortably, in no apparent distress. HEENT: Head is normocephalic, atraumatic. Eyes: Pupils are equally reactive to light bilaterally. No conjunctival pallor or icterus. NECK: Supple. Normal range of motion. No lymphadenopathy appreciated. LUNGS: Coarse breath sounds bilaterally. HEART: S1 and S2, regular rate and rhythm. No murmurs appreciated. ABDOMEN: Soft and nontender. Bowel sounds are present. No rebound. No guarding. RECTAL: Deferred. EXTREMITIES: Pulses present bilaterally. SKIN: Warm, dry and intact. NEUROLOGIC: A and O x3. LABORATORY DATA: Labs include WBC of 6.9 and hemoglobin of 14. LFTs are AST at this point is and alkaline phosphatase 102. ProBNP is 15,000. ASSESSMENT AND PLAN: This is a 57-year-old female with congestive heart failure and abdominal pain. The pain is possibly biliary colic or from her lungs. The LFT dysfunction is likely from congestive hepatopathy. The patient is doing well on liquids, diet is tolerating, and discharge planning per the cardiology clearance outpatient consult and surgical appreciated. HIDA scan noted as well. Kenroy Hickman MD/ PhD cc: Subhash Mackenzie MD
[2018-01-14] MEDS: Fluticasone-Salmeterol 250-50mcg Diskus IH SCH ×2 (09:41→21:36)
[2018-01-14] MEDS: Digoxin 125 mcg (0.125 mg) Tab PO SCH (09:42)
--- NOTE | 2018-01-14 12:02 | CP.PCM.PN ---
Subjective - Date & Time of Evaluation Date of Evaluation: 01/14/18 Time of Evaluation: 12:04 - Subjective Subjective: ABDOMINAL PAIN LESS STILL COUGHING BUT SOB IMPROVED LESS ANXIOUS Objective - Vital Signs/Intake and Output Vital Signs (last 24 hours): Temp Pulse Resp BP Pulse Ox 98.7 F 82 20 135/77 98 01/14/18 08:00 01/14/18 08:00 01/14/18 08:00 01/14/18 10:01 01/14/18 08:00 - Medications Medications: Current Medications Albuterol/Ipratropium (Duoneb 3 Mg/0.5 Mg (3 Ml) Ud) 3 ml INH RQID [facility] Last Admin: 01/14/18 11:27 Dose: 3 ml Alprazolam (Xanax) 0.25 mg PO Q12 PRN PRN Reason: Anxiety Stop: 01/19/18 09:38 Last Admin: 01/13/18 21:30 Dose: 0.25 mg Atorvastatin Calcium (Lipitor) 40 mg PO DAILY [facility] Last Admin: 01/14/18 09:42 Dose: 40 mg Digoxin (Digoxin) 0.125 mg PO DAILY [facility] Last Admin: 01/14/18 09:42 Dose: 0.125 mg Furosemide (Lasix) 40 mg IVP DAILY [facility] Last Admin: 01/14/18 10:01 Dose: 40 mg Glipizide (Glucotrol) 10 mg PO DAILY [facility] Last Admin: 01/14/18 09:42 Dose: 10 mg Home Med (Patient's Own Medication) 1 unit PO Q12 [facility] Home Med (Sacubitril/Valsartan [Entresto 49 Mg-51 Mg]) 1 tab PO Q12 [facility] Insulin Human Regular (Humulin R) 0 units SC ACHS [facility] PRN Reason: Protocol Last Admin: 01/14/18 06:42 Dose: 2 units Metformin HCl (Glucophage) 1,000 mg PO BIDWM [facility] Last Admin: 01/14/18 09:41 Dose: 1,000 mg Morphine Sulfate (Morphine) 2 mg IVP Q6 PRN PRN Reason: Pain, moderate (4-7) Pantoprazole Sodium (Protonix Inj) 40 mg IVP DAILY [facility] Last Admin: 01/14/18 09:43 Dose: Not Given Phenol/Menthol (Phenaseptic 1.4% Throat [place]) 1 spry MT Q2 PRN PRN Reason: Sore Throat Last Admin: 01/12/18 10:57 Dose: 1 spr Promethazine HCl/Codeine (Phenergan/Codeine Oral Syrup) 10 ml PO Q6 PRN PRN Reason: Cough Last Admin: 01/13/18 21:32 Dose: 10 ml Fluticasone/Salmeterol (Advair Diskus 250/50) 1 puff IH Q12 [facility] Last Admin: 01/14/18 09:41 Dose: 1 puff Spironolactone (Aldactone) 12.5 mg PO DAILY [facility] Last Admin: 01/14/18 09:42 Dose: 12.5 mg - Labs Labs: 01/12/18 04:25 01/14/18 05:25 - Constitutional Appears: No Acute Distress - Head Exam Head Exam: ATRAUMATIC, NORMAL INSPECTION, NORMOCEPHALIC - Eye Exam Eye Exam: EOMI, Normal appearance, PERRL Pupil Exam: NORMAL ACCOMODATION, PERRL - ENT Exam ENT Exam: Mucous Membranes Moist, Normal Exam - Neck Exam Neck Exam: Full ROM, Normal Inspection. absent: Lymphadenopathy - Respiratory Exam Respiratory Exam: Clear to Ausculation Bilateral, Prolonged Expiratory Phase, NORMAL BREATHING PATTERN - Cardiovascular Exam Cardiovascular Exam: REGULAR RHYTHM, +S1, +S2. absent: Murmur - GI/Abdominal Exam GI & Abdominal Exam: Soft, Normal Bowel Sounds. absent: Tenderness - Rectal Exam Rectal Exam: NORMAL INSPECTION - Extremities Exam Extremities Exam: Full ROM, Normal Capillary Refill, Normal Inspection, Pedal Edema. absent: Joint Swelling Additional comments: [facility] - Back Exam Back Exam: NORMAL INSPECTION - Neurological Exam Neurological Exam: Alert, Awake, CN II-XII Intact, Normal Gait, Oriented x3 - Psychiatric Exam Psychiatric exam: Normal Affect, Normal Mood - Skin Skin Exam: Dry, Intact, Normal Color, Rash, Warm Assessment and Plan - Assessment and Plan (Free Text) Assessment: ABD PAIN IMPROVED CHOLELITHIASIS CHF-IMPROVING CARDIOMYOPATHY DM TYPE 2 WITH HYPERGLYCEMIA SHORT RUN OF SVT ON MONITOR Plan: CONTINUE RX ORDERED RESTART CARDIAC MEDS THYROID PROFILE CASE DISCUSSED WITH LICENSED ESTHETICIAN--DR ROMERO--HE IS UNAVBLE TO SEE PT TODAY AND SUGGESTS CONSULT WITH DR ISRAEL
--- NOTE | 2018-01-14 12:21 | CP.PCM.PN ---
Subjective - Date & Time of Evaluation Date of Evaluation: 01/14/18 Time of Evaluation: 12:19 - Subjective Subjective: doing well Objective - Vital Signs/Intake and Output Vital Signs (last 24 hours): Temp Pulse Resp BP Pulse Ox 98.7 F 82 20 135/77 98 01/14/18 08:00 01/14/18 08:00 01/14/18 08:00 01/14/18 10:01 01/14/18 08:00 - Medications Medications: Current Medications Albuterol/Ipratropium (Duoneb 3 Mg/0.5 Mg (3 Ml) Ud) 3 ml INH RQID [facility] Last Admin: 01/14/18 11:27 Dose: 3 ml Alprazolam (Xanax) 0.25 mg PO Q12 PRN PRN Reason: Anxiety Stop: 01/19/18 09:38 Last Admin: 01/13/18 21:30 Dose: 0.25 mg Atorvastatin Calcium (Lipitor) 40 mg PO DAILY [facility] Last Admin: 01/14/18 09:42 Dose: 40 mg Clotrimazole (Lotrimin 1% Cream) 1 applic TOP BID [facility] Digoxin (Digoxin) 0.125 mg PO DAILY [facility] Last Admin: 01/14/18 09:42 Dose: 0.125 mg Furosemide (Lasix) 40 mg IVP DAILY [facility] Last Admin: 01/14/18 10:01 Dose: 40 mg Glipizide (Glucotrol) 10 mg PO DAILY [facility] Last Admin: 01/14/18 09:42 Dose: 10 mg Home Med (Patient's Own Medication) 1 unit PO Q12 [facility] Home Med (Sacubitril/Valsartan [Entresto 49 Mg-51 Mg]) 1 tab PO Q12 [facility] Insulin Human Regular (Humulin R) 0 units SC ACHS [facility] PRN Reason: Protocol Last Admin: 01/14/18 06:42 Dose: 2 units Metformin HCl (Glucophage) 1,000 mg PO BIDWM [facility] Last Admin: 01/14/18 09:41 Dose: 1,000 mg Morphine Sulfate (Morphine) 2 mg IVP Q6 PRN PRN Reason: Pain, moderate (4-7) Pantoprazole Sodium (Protonix Inj) 40 mg IVP DAILY [facility] Last Admin: 01/14/18 09:43 Dose: Not Given Phenol/Menthol (Phenaseptic 1.4% Throat [place]) 1 spry MT Q2 PRN PRN Reason: Sore Throat Last Admin: 01/12/18 10:57 Dose: 1 spr Promethazine HCl/Codeine (Phenergan/Codeine Oral Syrup) 10 ml PO Q6 PRN PRN Reason: Cough Last Admin: 01/13/18 21:32 Dose: 10 ml Fluticasone/Salmeterol (Advair Diskus 250/50) 1 puff IH Q12 [facility] Last Admin: 01/14/18 09:41 Dose: 1 puff Spironolactone (Aldactone) 12.5 mg PO DAILY [facility] Last Admin: 01/14/18 09:42 Dose: 12.5 mg - Labs Labs: 01/12/18 04:25 01/14/18 05:25 - Head Exam Head Exam: NORMOCEPHALIC - ENT Exam ENT Exam: Normal Exam - Neck Exam Neck Exam: Normal Inspection - Respiratory Exam Respiratory Exam: NORMAL BREATHING PATTERN - Cardiovascular Exam Cardiovascular Exam: REGULAR RHYTHM - GI/Abdominal Exam GI & Abdominal Exam: Soft, Normal Bowel Sounds
--- NOTE | 2018-01-14 13:03 | CP.PCM.CON ---
History of Present Illness - History of Present Illness History of Present Illness: THE PATIENT IS A 57 YEAR OLD FEMALE WHO WAS ADMITTED FOR ACUTE COPD EXACERBATION AND ABDOMINAL PAIN. SHE ALSO HAS A HISTORY OF BREAST CANCER WITH A MASTECTOMY AND CHEMOTHERAPY SEVERAL YEARS AGO AND DEVELOPED CARDIOMYOPATHY FROM THE CHEMOTHERAPY AND HAD A DEFIBRILLATOR INSERTED. SHE WAS ADMITTED TO [facility] IN 2024 FOR CHF AND AND AN ECHO SHOWED A LVEF OF15%. SHE ALSO HAS A HISTORY OF HYPERTENSION, HYPERLIPIDEMIA AND DIABETES MELLITUS. HER ESCROW CLOSER IS DR SO WHO IS ON VACATION AND SHE ALSO WAS EVALUATED FOR A POSSIBLE HEART TRANSPLANT AT [facility]. SHE DENIES CAD AND DID NOT HAVE ANY CHEST PAIN. SHE WAS TREATED WITH ANTIBIOTICS AND BRONCHODILATORS AND IS BREATHING BETTER NOW. SHE WAS ALSO FOUND TO HAVE CHOLELITHIASIS BUT DOESN'T NEED SURGERY. CARDIOLOGY WAS ASKED TO SEE HER FOR SOME SHORT VENTRICULAR RUNS. SHE DENIES PALPITATIONS OR LIGHTHEADEDNESS. Past Patient History - Past Medical History & Family History Past Medical History?: Yes - Past Social History Alcohol: None Drugs: Denies - CARDIAC Hx Congestive Heart Failure: Yes Hx Hypertension: Yes - PULMONARY Hx Asthma: Yes Hx Chronic Obstructive Pulmonary Disease (COPD): Yes - HEENT Hx Cataracts: Yes - RENAL Hx Kidney Stones: Yes - ENDOCRINE/METABOLIC Hx Diabetes Mellitus Type 2: Yes - HEMATOLOGICAL/ONCOLOGICAL Hx Human Immunodeficiency Virus (HIV): No - INTEGUMENTARY Other/Comment: Shingles - MUSCULOSKELETAL/RHEUMATOLOGICAL Hx Falls: No - GASTROINTESTINAL Hx Gastrointestinal Disorders: No - GENITOURINARY/GYNECOLOGICAL Other/Comment: left breast ca 14 yrs ago - PSYCHIATRIC Hx Anxiety: Yes - SURGICAL HISTORY Hx Surgeries: Yes Hx Hysterectomy: Yes Hx Mastectomy: Yes (left) Hx Orthopedic Surgery: Yes (left knee) - ANESTHESIA Hx Anesthesia: Yes Hx Anesthesia Reactions: No Hx Malignant Hyperthermia: No Meds Allergies/Adverse Reactions: Allergies Allergy/AdvReac Type Severity Reaction Status Date / Time No Known Allergies Allergy Verified 07/09/14 13:47 - Medications Medications: Current Medications Albuterol/Ipratropium (Duoneb 3 Mg/0.5 Mg (3 Ml) Ud) 3 ml INH RQID [facility] Last Admin: 01/14/18 11:27 Dose: 3 ml Alprazolam (Xanax) 0.25 mg PO Q12 PRN PRN Reason: Anxiety Stop: 01/19/18 09:38 Last Admin: 01/13/18 21:30 Dose: 0.25 mg Atorvastatin Calcium (Lipitor) 40 mg PO DAILY [facility] Last Admin: 01/14/18 09:42 Dose: 40 mg Clotrimazole (Lotrimin 1% Cream) 1 applic TOP BID [facility] Digoxin (Digoxin) 0.125 mg PO DAILY [facility] Last Admin: 01/14/18 09:42 Dose: 0.125 mg Furosemide (Lasix) 40 mg IVP DAILY [facility] Last Admin: 01/14/18 10:01 Dose: 40 mg Glipizide (Glucotrol) 10 mg PO DAILY [facility] Last Admin: 01/14/18 09:42 Dose: 10 mg Home Med (Patient's Own Medication) 1 unit PO Q12 [facility] Home Med (Sacubitril/Valsartan [Entresto 49 Mg-51 Mg]) 1 tab PO Q12 [facility] Insulin Human Regular (Humulin R) 0 units SC ACHS [facility] PRN Reason: Protocol Last Admin: 01/14/18 06:42 Dose: 2 units Metformin HCl (Glucophage) 1,000 mg PO BIDWM [facility] Last Admin: 01/14/18 09:41 Dose: 1,000 mg Morphine Sulfate (Morphine) 2 mg IVP Q6 PRN PRN Reason: Pain, moderate (4-7) Pantoprazole Sodium (Protonix Inj) 40 mg IVP DAILY [facility] Last Admin: 01/14/18 09:43 Dose: Not Given Phenol/Menthol (Phenaseptic 1.4% Throat [place]) 1 spry MT Q2 PRN PRN Reason: Sore Throat Last Admin: 01/12/18 10:57 Dose: 1 spr Promethazine HCl/Codeine (Phenergan/Codeine Oral Syrup) 10 ml PO Q6 PRN PRN Reason: Cough Last Admin: 01/13/18 21:32 Dose: 10 ml Fluticasone/Salmeterol (Advair Diskus 250/50) 1 puff IH Q12 [facility] Last Admin: 01/14/18 09:41 Dose: 1 puff Spironolactone (Aldactone) 12.5 mg PO DAILY [facility] Last Admin: 01/14/18 09:42 Dose: 12.5 mg Physical Exam - Respiratory Exam Additional comments: GOOD AERATION MILD RALES AT THE BASES - Extremities Exam Additional comments: TRACE EDEMA OF THE LE BILAT - Additional Findings Additional findings: EKG ST, R 107 LVEF ON 2014 ECHO AT [facility] WAS 15%, MR, TR CXR NOW WITH PACEMAKER DEFIBRILLATOR, NO SIGNIFICANT CONGESTION PBNP 15,700 AND DECREASED TO 14,700 K= 4.3 ALL EKG RHTHM STRIPS REVIEWED AND PATIENT IS MOSTLY IN SINUS RHYTHM WITH A FEW WIDE COMPLEX RUNS OF 4 TO 8 BEATS. ONE EPISODE APPEARS TO BE ABERRANCY AND OTHER APPEARS DIFFERENT. SHORT VENTRICULAR RUNS SHOULD BE ASSUMMED BUT THEY ARE IRREGULAR AND MAY REPRESENT SHORT SVT RUNS WITH ABERRANCY. NO SUSTAINED TACHYCARDIA OF 30 SECONS OR LONGER. Results - Vital Signs Recent Vital Signs: Last Vital Signs Temp 97.9 F 01/14/18 12:00 Pulse 89 01/14/18 12:00 Resp 20 01/14/18 12:00 BP 123/71 01/14/18 12:00 Pulse Ox 93 L 01/14/18 12:00 - Labs Result Diagrams: 01/12/18 04:25 01/14/18 05:25 Labs: Laboratory Results - last 24 hr 01/13/18 01/13/18 01/14/18 15:45 21:22 05:25 Sodium 136 Potassium 3.8 Chloride 91 L Carbon Dioxide 30 Anion Gap 19 BUN 33 H Creatinine 1.0 Est GFR ( Amer) > 60 Est GFR (Non-Af Amer) 57 POC Glucose (mg/dL) 297 H 162 H Random Glucose 262 H Calcium 9.2 Digoxin 01/14/18 01/14/18 01/14/18 05:25 05:54 11:37 Sodium Potassium Chloride Carbon Dioxide Anion Gap BUN Creatinine Est GFR ( Amer) Est GFR (Non-Af Amer) POC Glucose (mg/dL) 246 H 221 H Random Glucose Calcium Digoxin 0.5 L Assessment & Plan - Assessment and Plan (Free Text) Assessment: COPD EXACERBATION CHOLELITHIASIS CHEMOTHERAPY INDUCED CARDIOMYOPATHY WITH CHRONIC SYSTOLIC CHF AND DEFIBRILLATOR INSERTION NON-SUSTAINED SHORT RUNS OF SVT WITH ABERRANCY OR VENTRICULAR RUNS HYPERLIPIDEMIA HYPERTENSION Plan: NO NEED TO TREAT ASYMPTOMATIC SHORT SVT OR VENTRICULAR RUNS. THE PATIENT ALREADY HAS A DEFIBRILLATOR. CONTINUE SPIRONOLACTONE, FUROSEMIDE, DIGOXIN, ATORVASTATIN, SACUBITRIL/VALSAR WILL NOT ADD ANY ADDITIONAL CARDIAC MEDICATIONS AT THIS TIME HER MEDICAL REGIMEN IS HANDLED BY HER PRIVATE ESCROW CLOSER ECHOCARDIOGRAM ORDERED
[2018-01-14] MEDS ORDERED: VALSARTAN PO SCH (21:00)
[2018-01-14] MEDS ORDERED: SACUBITRIL PO SCH (21:00)
[2018-01-14] MEDS: Promethazine/Cod 6.25mg-10mg/5ml Syr UD PO PRN (21:37)
[2018-01-15] MEDS: Insulin Regular 100 units/ml SC SCH ×4 (06:48→22:02)
[2018-01-15] MEDS: Albuterol-Ipratrop 3 mg / 0.5 (3 ml) UD INH SCH ×4 (07:48→20:07)
--- NOTE | 2018-01-15 08:59 | CARD ---
APPROVED REPORT EXAM: Two-dimensional and M-mode echocardiogram with Doppler and color Doppler. Other Information Quality : ExcellentRhythm : Pacemaker INDICATION Cardiomyopathy Surgery/Intervention ICD/Pacemaker: 2D DIMENSIONS IVSd0.82 (0.7-1.1cm)LVDd5.88 (3.9-5.9cm) LVOT Diameter1.59 (1.8-2.4cm)PWd0.72 (0.7-1.1cm) IVSs0.85 (0.8-1.2cm)LVDs5.09 (2.5-4.0cm) FS (%) 13.5 %PWs1.26 (0.8-1.2cm) M-Mode DIMENSIONS Left Atrium (MM)4.79 (2.5-4.0cm)IVSd0.76 (0.7-1.1cm) Aortic Root2.32 (2.2-3.7cm)LVDd6.56 (4.0-5.6cm) Aortic Cusp Exc.1.50 (1.5-2.0cm)PWd0.65 (0.7-1.1cm) IVSs0.65 cmFS (%) 14 % LVDs5.65 (2.0-3.8cm)PWs1.12 cm Mitral Valve MV E Tskhcuth978.5cm/sMV DECEL [id number] A Swvfmkty47.5cm/s MV DOU52fhI/A ratio1.2MVA (PHT)5.91cm2 TDI Lateral E' Peak V7.66cm/sMedial E' Peak V4.48cm/sE/Lateral E'14.2 E/Medial E'24.2 Pulmonary Valve PV Peak Fdxnqban528.0cm/s Tricuspid Valve TR Peak Pcvuduoz936oi/sRAP MJAKCGDP57kgPuRM Peak Gr.45mmHg [id number] LEFT VENTRICLE The Left Ventricle is mildly dilated. There is normal left ventricular wall thickness. Left ventricle systolic function is severely impaired. The Ejection Fraction is 10-15%. Ant wall and septum were mild/moderately hypokinetic Inerior and lateral tijer[place] were profoundly hypokinetic Transmitral Doppler flow pattern is Grade II-pseudonormal filling dynamics. RIGHT VENTRICLE The right ventricle is normal size. There is normal right ventricular wall thickness. The right ventricular systolic function is normal. ATRIA The left atrium is moderately dilated. The right atrium is moderately dilated. Pacing lead was seen traversing the tricuspid valve. AORTIC VALVE The aortic valve is normal in structure. No aortic regurgitation is present. There is no aortic valvular stenosis. MITRAL VALVE The mitral valve is normal in structure. There is no evidence of mitral valve prolapse. There is no mitral valve stenosis. Mitral regurgitation is moderate to severe. TRICUSPID VALVE The tricuspid valve is normal in structure. There is moderate to severe tricuspid regurgitation. Right ventricular systolic pressure is estimated at 55 mmHg. There is moderate-severe pulmonary hypertension. PULMONIC VALVE The pulmonary valve is normal in structure. There is trace to mild pulmonic valvular regurgitation. GREAT VESSELS The aortic root is normal in size. The IVC is normal in size and collapses >50% with inspiration. PERICARDIAL EFFUSION The pericardium appears normal. <Conclusion> The Left Ventricle is mildly dilated. There is normal left ventricular wall thickness. Ant wall and septum were mild/moderately hypokinetic Inerior and lateral tijer[place] were profoundly hypokinetic Left ventricle systolic function is severely impaired. The Ejection Fraction is 10-15%. Transmitral Doppler flow pattern is Grade II-pseudonormal filling dynamics. The left atrium is moderately dilated. The right atrium is moderately dilated. Mitral regurgitation is moderate to severe. There is moderate to severe tricuspid regurgitation. Right ventricular systolic pressure is estimated at 55 mmHg. There is moderate-severe pulmonary hypertension.
[2018-01-15 09:07] LABS: T4 6.87 ug/dl (5.5-11.0)
[2018-01-15] MEDS: Fluticasone-Salmeterol 250-50mcg Diskus IH SCH ×2 (09:19→21:18)
[2018-01-15] MEDS: Digoxin 125 mcg (0.125 mg) Tab PO SCH (09:20)
--- NOTE | 2018-01-15 10:18 | CP.PCM.PN ---
Subjective - Date & Time of Evaluation Date of Evaluation: 01/15/18 Time of Evaluation: 10:17 - Subjective Subjective: still dyspneic on mild exertion cough less Objective - Vital Signs/Intake and Output Vital Signs (last 24 hours): Temp Pulse Resp BP Pulse Ox 97.9 F 87 20 123/72 93 L 01/15/18 08:33 01/15/18 08:33 01/15/18 08:33 01/15/18 09:21 01/15/18 08:33 - Medications Medications: Current Medications Albuterol/Ipratropium (Duoneb 3 Mg/0.5 Mg (3 Ml) Ud) 3 ml INH RQID [facility] Last Admin: 01/15/18 07:48 Dose: 3 ml Alprazolam (Xanax) 0.25 mg PO Q12 PRN PRN Reason: Anxiety Stop: 01/19/18 09:38 Last Admin: 01/14/18 21:37 Dose: 0.25 mg Atorvastatin Calcium (Lipitor) 40 mg PO DAILY [facility] Last Admin: 01/15/18 09:20 Dose: 40 mg Clotrimazole (Lotrimin 1% Cream) 1 applic TOP BID [facility] Last Admin: 01/15/18 09:27 Dose: 1 applic Digoxin (Digoxin) 0.125 mg PO DAILY [facility] Last Admin: 01/15/18 09:20 Dose: 0.125 mg Furosemide (Lasix) 40 mg IVP DAILY [facility] Last Admin: 01/15/18 09:21 Dose: 40 mg Glipizide (Glucotrol) 10 mg PO DAILY [facility] Last Admin: 01/15/18 09:20 Dose: 10 mg Home Med (Patient's Own Medication) 1 unit PO Q12 [facility] Home Med (Sacubitril/Valsartan [Entresto 49 Mg-51 Mg]) 1 tab PO Q12 [facility] Insulin Human Regular (Humulin R) 0 units SC ACHS [facility] PRN Reason: Protocol Last Admin: 01/15/18 06:48 Dose: 3 units Morphine Sulfate (Morphine) 2 mg IVP Q6 PRN PRN Reason: Pain, moderate (4-7) Pantoprazole Sodium (Protonix Inj) 40 mg IVP DAILY [facility] Last Admin: 01/15/18 09:21 Dose: 40 mg Phenol/Menthol (Phenaseptic 1.4% Throat [place]) 1 spry MT Q2 PRN PRN Reason: Sore Throat Last Admin: 01/12/18 10:57 Dose: 1 spr Promethazine HCl/Codeine (Phenergan/Codeine Oral Syrup) 10 ml PO Q6 PRN PRN Reason: Cough Last Admin: 01/14/18 21:37 Dose: 10 ml Fluticasone/Salmeterol (Advair Diskus 250/50) 1 puff IH Q12 [facility] Last Admin: 01/15/18 09:19 Dose: 1 puff Sitagliptin Phosphate (Januvia) 100 mg PO DAILY [facility] Spironolactone (Aldactone) 12.5 mg PO DAILY [facility] Last Admin: 01/15/18 09:22 Dose: 12.5 mg - Labs Labs: 01/12/18 04:25 01/14/18 05:25 - Constitutional Appears: No Acute Distress - Head Exam Head Exam: ATRAUMATIC, NORMAL INSPECTION, NORMOCEPHALIC - Eye Exam Eye Exam: EOMI, Normal appearance, PERRL Pupil Exam: NORMAL ACCOMODATION, PERRL - ENT Exam ENT Exam: Mucous Membranes Moist, Normal Exam - Neck Exam Neck Exam: Full ROM, Normal Inspection. absent: Lymphadenopathy - Respiratory Exam Respiratory Exam: Decreased Breath Sounds, Prolonged Expiratory Phase, Rales, NORMAL BREATHING PATTERN - Cardiovascular Exam Cardiovascular Exam: REGULAR RHYTHM, +S1, +S2. absent: Murmur - GI/Abdominal Exam GI & Abdominal Exam: Soft, Normal Bowel Sounds. absent: Tenderness - Rectal Exam Rectal Exam: NORMAL INSPECTION - Extremities Exam Extremities Exam: Full ROM, Normal Capillary Refill, Normal Inspection. absent : Joint Swelling, Pedal Edema - Back Exam Back Exam: NORMAL INSPECTION - Neurological Exam Neurological Exam: Alert, Awake, CN II-XII Intact, Normal Gait, Oriented x3 - Psychiatric Exam Psychiatric exam: Normal Affect, Normal Mood - Skin Skin Exam: Dry, Intact, Normal Color, Warm Assessment and Plan - Assessment and Plan (Free Text) Assessment: cardiomyopathy chf copd dm gastritis gallbladder dz Plan: continue current rx d/c glucophage--pt refused med begin januvia
[2018-01-16] MEDS: Albuterol-Ipratrop 3 mg / 0.5 (3 ml) UD INH SCH ×2 (07:40→11:46)
[2018-01-16 08:31] VITALS: RESP 20
[2018-01-16] MEDS: Fluticasone-Salmeterol 250-50mcg Diskus IH SCH (09:17)
[2018-01-16] MEDS: Digoxin 125 mcg (0.125 mg) Tab PO SCH (09:18)
[2018-01-16] MEDS: Insulin Regular 100 units/ml SC SCH ×2 (09:19→12:51)
[2018-01-16 09:20] VITALS: PULSE 78
--- NOTE | 2018-01-16 10:43 | CP.PCM.PN ---
Subjective - Date & Time of Evaluation Date of Evaluation: 01/16/18 Time of Evaluation: 10:20 - Subjective Subjective: NO CHEST PAIN BREATHING BETTER Objective - Vital Signs/Intake and Output Vital Signs (last 24 hours): Temp Pulse Resp BP Pulse Ox 97.8 F 78 20 129/71 93 L 01/16/18 08:30 01/16/18 09:00 01/16/18 08:30 01/16/18 09:18 01/16/18 08:30 - Medications Medications: Current Medications Albuterol/Ipratropium (Duoneb 3 Mg/0.5 Mg (3 Ml) Ud) 3 ml INH RQID [facility] Last Admin: 01/16/18 07:40 Dose: Not Given Alprazolam (Xanax) 0.25 mg PO Q12 PRN PRN Reason: Anxiety Stop: 01/19/18 09:38 Last Admin: 01/14/18 21:37 Dose: 0.25 mg Atorvastatin Calcium (Lipitor) 40 mg PO DAILY [facility] Last Admin: 01/16/18 09:18 Dose: 40 mg Clotrimazole (Lotrimin 1% Cream) 1 applic TOP BID [facility] Last Admin: 01/16/18 09:16 Dose: 1 applic Digoxin (Digoxin) 0.125 mg PO DAILY [facility] Last Admin: 01/16/18 09:18 Dose: 0.125 mg Furosemide (Lasix) 40 mg IVP DAILY [facility] Last Admin: 01/16/18 09:18 Dose: 40 mg Glipizide (Glucotrol) 10 mg PO DAILY [facility] Last Admin: 01/16/18 09:16 Dose: 10 mg Home Med (Patient's Own Medication) 1 unit PO Q12 [facility] Home Med (Sacubitril/Valsartan [Entresto 49 Mg-51 Mg]) 1 tab PO Q12 [facility] Insulin Human Regular (Humulin R) 0 units SC ACHS [facility] PRN Reason: Protocol Last Admin: 01/16/18 09:19 Dose: 2 units Morphine Sulfate (Morphine) 2 mg IVP Q6 PRN PRN Reason: Pain, moderate (4-7) Pantoprazole Sodium (Protonix Inj) 40 mg IVP DAILY [facility] Last Admin: 01/16/18 09:16 Dose: 40 mg Phenol/Menthol (Phenaseptic 1.4% Throat [place]) 1 spry MT Q2 PRN PRN Reason: Sore Throat Last Admin: 01/12/18 10:57 Dose: 1 spr Promethazine HCl/Codeine (Phenergan/Codeine Oral Syrup) 10 ml PO Q6 PRN PRN Reason: Cough Last Admin: 01/14/18 21:37 Dose: 10 ml Fluticasone/Salmeterol (Advair Diskus 250/50) 1 puff IH Q12 [facility] Last Admin: 01/16/18 09:17 Dose: 1 puff Sitagliptin Phosphate (Januvia) 100 mg PO DAILY [facility] Last Admin: 01/16/18 09:18 Dose: 100 mg Spironolactone (Aldactone) 12.5 mg PO DAILY [facility] Last Admin: 01/16/18 09:17 Dose: 12.5 mg - Labs Labs: 01/12/18 04:25 01/14/18 05:25 - Respiratory Exam Additional comments: MILD RALES AT BASES - Cardiovascular Exam Cardiovascular Exam: REGULAR RHYTHM, +S1, +S2 - Extremities Exam Additional comments: NO LE EDEMA - Additional Findings Additional findings: WATERPROOF BAG SEWER NSR ECHO LVE, LVEF 10-15%, LAE, MODERATE TO SEVERE MR AND TR, MODERATE TO SEVERE PULMONARY HYPERTENSION Assessment and Plan - Assessment and Plan (Free Text) Assessment: COPD EXACERBATION CHEMOTHERAPY INDUCED CARDIOMYOPATJY HYPERTENSION HYPERLIPIDEMIA Plan: OK TO DISCHARGE PATIENT FROM CARDIAC VIEWPOINT CONTINUE PRESENT CARDIAC MEDICATIONS AND FU WITH LOCAL REHAB CONSULTANT
--- NOTE | 2018-01-16 12:00 | CP.PCM.DIS ---
Provider - Provider Date of Admission: 01/11/18 15:30 Attending physician: Subhash Mackenzie MD Time Spent in preparation of Discharge (in minutes): 30 Diagnosis - Discharge Diagnosis (1) CHF exacerbation Status: Acute (2) Cholelithiasis Status: Acute (3) Acute dyspnea Status: Acute (4) COPD exacerbation Status: Acute (5) Cardiomyopathy Status: Acute (6) Diabetes 1.5, managed as type 2 Status: Acute (7) Upper respiratory infection Status: Acute Hospital Course - Lab Results Lab Results: Micro Results 01/11/18 16:00 Blood-Venous Blood Culture - Preliminary NO GROWTH AFTER 4 DAYS 01/11/18 16:15 Blood-Venous Blood Culture - Preliminary NO GROWTH AFTER 4 DAYS Most Recent Lab Values WBC 6.9 K/uL (4.8-10.8) 01/12/18 04:25 RBC 4.26 Mil/uL (3.80-5.20) 01/12/18 04:25 Hgb 14.0 g/dL (12.0-16.0) 01/12/18 04:25 Hct 42.9 % (34.0-47.0) 01/12/18 04:25 MCV 100.6 fl (81.0-99.0) H 01/12/18 04:25 MCH 32.7 pg (27.0-31.0) H 01/12/18 04:25 MCHC 32.5 g/dL (33.0-37.0) L 01/12/18 04:25 RDW 13.7 % (11.5-14.5) 01/12/18 04:25 Plt Count 194 K/uL (130-400) 01/12/18 04:25 MPV 11.3 fl (7.2-11.7) 01/12/18 04:25 Neut % (Auto) 90.7 % (50.0-75.0) H 01/12/18 04:25 Lymph % (Auto) 8.6 % (20.0-40.0) L 01/12/18 04:25 [place] % (Auto) 0.6 % (0.0-10.0) 01/12/18 04:25 Eos % (Auto) 0.0 % (0.0-4.0) 01/12/18 04:25 Baso % (Auto) 0.1 % (0.0-2.0) 01/12/18 04:25 Neut # (Auto) 6.2 K/uL (1.8-7.0) 01/12/18 04:25 Lymph # (Auto) 0.6 K/uL (1.0-4.3) L 01/12/18 04:25 [place] # (Auto) 0.0 K/uL (0.0-0.8) 01/12/18 04:25 Eos # (Auto) 0.0 K/uL (0.0-0.7) 01/12/18 04:25 Baso # (Auto) 0.0 K/uL (0.0-0.2) 01/12/18 04:25 Neutrophils % (Manual) 90 % (42-75) H 01/12/18 04:25 Lymphocytes % (Manual) 9 % (20-50) L 01/12/18 04:25 Reactive Lymphs % 1 % (0-0) H 01/12/18 04:25 Monocytes % (Manual) TEST NOT PERFORMED 01/12/18 04:25 Platelet Estimate Normal (NORMAL) 01/12/18 04:25 Large Platelets Present 01/12/18 04:25 Anisocytosis (manual) Slight 01/12/18 04:25 Sodium 136 mmol/l (132-148) 01/14/18 05:25 Potassium 3.8 MMOL/L (3.6-5.0) 01/14/18 05:25 Chloride 91 mmol/L (98-107) L 01/14/18 05:25 Carbon Dioxide 30 mmol/L (22-30) 01/14/18 05:25 Anion Gap 19 (10-20) 01/14/18 05:25 BUN 33 mg/dl (7-17) H 01/14/18 05:25 Creatinine 1.0 mg/dl (0.7-1.2) 01/14/18 05:25 Est GFR ( Amer) > 60 01/14/18 05:25 Est GFR (Non-Af Amer) 57 01/14/18 05:25 POC Glucose (mg/dL) 355 mg/dL (65-110) H 01/16/18 10:44 Random Glucose 262 mg/dL (65-105) H 01/14/18 05:25 Calcium 9.2 mg/dL (8.4-10.2) 01/14/18 05:25 Total Bilirubin 1.6 mg/dl (0.2-1.3) H 01/13/18 05:30 Direct Bilirubin 1.1 mg/ml (0.0-0.4) H 01/11/18 16:00 AST 61 U/L (14-36) H 01/13/18 05:30 ALT 107 U/L (9-52) H 01/13/18 05:30 Alkaline Phosphatase 102 U/L (38-126) 01/13/18 05:30 Total Creatine Kinase 183 U/L (30-135) H 01/11/18 10:40 Troponin I 0.0420 ng/mL (0.00-0.120) 01/11/18 10:40 NT-Pro-B Natriuret Pep 62870 pg/ml (0-900) H 01/15/18 07:10 Total Protein 6.8 G/DL (6.3-8.2) 01/13/18 05:30 Albumin 3.8 g/dL (3.5-5.0) 01/13/18 05:30 Globulin 2.9 gm/dL (2.2-3.9) 01/13/18 05:30 Albumin/Globulin Ratio 1.3 (1.0-2.1) 01/13/18 05:30 Triglycerides 121 mg/DL (0-149) 01/12/18 04:25 Cholesterol 207 mg/dL (0-199) H 01/12/18 04:25 LDL Cholesterol Direct 160 mg/dL (0-129) H 01/12/18 04:25 HDL Cholesterol 23 MG/DL (30-70) L 01/12/18 04:25 Lipase 73 U/L (23-300) 01/11/18 10:40 Thyroxine (T4) 6.87 ug/dl (5.5-11.0) 01/15/18 07:10 TSH 3rd Generation 4.25 mIU/ML (0.46-4.68) 01/15/18 07:10 Digoxin 0.5 ng/mL (0.8-2.0) L 01/14/18 05:25 - Hospital Course Hospital Course: CLINICALLY IMPROVED SOB AND ABDOMINAL PAINS RESOLVED Discharge Exam - Head Exam Head Exam: ATRAUMATIC, NORMAL INSPECTION, NORMOCEPHALIC - Eye Exam Eye Exam: EOMI, Normal appearance, PERRL Pupil Exam: NORMAL ACCOMODATION, PERRL - GI/Abdominal Exam GI & Abdominal Exam: Normal Bowel Sounds - Rectal Exam Rectal Exam: NORMAL INSPECTION - Neurological Exam Neurological exam: Alert, CN II-XII Intact, Normal Gait, Oriented x3, Reflexes Normal - Psychiatric Exam Psychiatric exam: Normal Affect, Normal Mood - Skin Skin Exam: Dry, Intact, Normal Color, Warm Discharge Plan - Follow Up Plan Condition: FAIR Disposition: HOME/ ROUTINE Patient education suggested?: Yes Instructions: Heart Failure, Adult (DC), Gallstones (DC) Additional Instructions: follow up appt with on wednesday01/18/18 at 3:45pm Referrals: Clarence Conde MD [Staff Provider] - Kenroy Hickman MD, PhD [Staff Provider] - Dany Herrera MD [Staff Provider] - Subhash Mackenzie MD [Family Provider] -
[2018-01-16 13:10] VITALS: BP 102/70; PULSE 88; TEMP 97.6; O2SAT 97
--- NOTE | 2018-01-18 07:51 | CARD ---
APPROVED REPORT <Conclusion> Sinus rhythm Biatrial enlargement Old septal infarct ST depression/T wave inversion in lateral leads
== END 2018-01-16 14:55 | disposition home or self-care (01) | DRG 190 ==
LOC: H.ER 08:26 → H.ERHOLD 15:30 → H.TEL 18:05
PROVIDERS: ADMIT Internal Medicine Pulmonary Disease; ATTEND Internal Medicine Pulmonary Disease
DX: J44.1 Chronic obstructive pulmonary disease with (acute) exacerbation (principal); I50.23 Acute on chronic systolic (congestive) heart failure; I42.7 Cardiomyopathy due to drug and external agent; I47.1 Supraventricular tachycardia; K80.20 Calculus of gallbladder without cholecystitis without obstruction; E11.65 Type 2 diabetes mellitus with hyperglycemia; N20.0 Calculus of kidney; Z87.891 Personal history of nicotine dependence; Z85.3 Personal history of malignant neoplasm of breast; F41.9 Anxiety disorder, unspecified; K29.70 Gastritis, unspecified, without bleeding; E78.5 Hyperlipidemia, unspecified; Z95.810 Presence of automatic (implantable) cardiac defibrillator; T45.1X5A Adverse effect of antineoplastic and immunosuppressive drugs, initial encounter; I27.20 Pulmonary hypertension, unspecified; I08.1 Rheumatic disorders of both mitral and tricuspid valves; J06.9 Acute upper respiratory infection, unspecified; I11.0 Hypertensive heart disease with heart failure; K76.1 Chronic passive congestion of liver